=== PATIENT | female | born 1940 | race African-American/Black ===

== ENCOUNTER 2017-02-14 12:10 | Emergency (ER) | payer OTHER ==
--- NOTE | 2017-02-14 12:44 | PDOC ---
History of Present Illness - General Chief Complaint: Injury Stated Complaint: LEFT SHOULDER PAIN Time Seen by Provider: 02/14/17 12:32 History Source: Patient, Old Records Exam Limitations: No Limitations - History of Present Illness Initial Comments: 02/14/17 12:40 76-year-old female with history of hypertension, diabetes who presents to the emergency Department with complaints of left shoulder pain associated with some lightheadedness and feeling flushed earlier today. The patient states that she was at [employer] pushing a shopping cart when she suddenly started feeling this pain. The pain radiated into her neck but not into her chest. She denies trauma to the area. She has never had these feelings before. The pain lasted approximately 5 minutes and was described as sharp.She had no shortness of breath, nausea or vomiting. Past History - Past Medical History Allergies/Adverse Reactions: Allergies Allergy/AdvReac Type Severity Reaction Status Date / Time grapefruit Allergy "ITCHY" Verified 01/30/16 09:57 No Known Drug Allergies Allergy Verified 01/30/16 09:57 strawberry Allergy "ITCHY" Verified 01/30/16 09:57 tomato Allergy "ITCHY" Verified 01/30/16 09:57 Home Medications: Ambulatory Orders Amlodipine Besylate 10 mg PO HS tablet 02/13/14 Aspirin [Aspirin EC] 81 mg PO DAILY 02/13/14 Metformin HCl 500 mg PO BID #14 tablet 08/21/14 Anemia: No Asthma: No Cancer: No Cardiac Disorders: No CVA: No COPD: No CHF: No Dementia: No Diabetes: Yes GI Disorders: No Disorders: No HTN: Yes Hypercholesterolemia: No Liver Disease: No Seizures: No Thyroid Disease: No - Psycho/Social/Smoking Cessation Hx Suicidal Ideation: No Smoking History: Never smoked Have you smoked in the past 12 months: No Hx Alcohol Use: No Drug/Substance Use Hx: No Substance Use Type: None Hx Substance Use Treatment: No Review of Systems - Review of Systems Able to Perform ROS?: Yes Is the patient limited Latvian proficient: No Constitutional: No: Symptoms Reported HEENTM: No: Symptoms Reported Respiratory: No: Symptoms reported Cardiac (ROS): Yes: See HPI ABD/GI: No: Symptoms Reported : No: Symptoms Reported Musculoskeletal: Yes: See HPI Integumentary: No: Symptoms Reported Neurological: No: Symptoms reported *Physical Exam - Physical Exam Comments: 02/14/17 12:42 GENERAL: Well developed, well nourished. Awake and alert. No acute distress. HEENT: Normocephalic, atraumatic. PERRLA, EOMI. No conjunctival pallor. Sclera are non- icteric. Moist mucous membranes. Oropharynx is clear. NECK: Supple. Full ROM. No JVD. No lymphadenopathy. CARDIOVASCULAR: Regular rate and rhythm. No murmurs, rubs, or gallops. Distal pulses are 2+ and symmetric. PULMONARY: No evidence of respiratory distress. Lungs clear to auscultation bilaterally. No wheezing, rales or rhonchi. ABDOMINAL: Soft. Non-tender. Non-distended. No rebound or guarding. No organomegaly. Normoactive bowel sounds. MUSCULOSKELETAL Normal range of motion at all joints. No bony deformities or tenderness. No CVA tenderness. EXTREMITIES: No cyanosis. No clubbing. No edema. No calf tenderness. SKIN: Warm and dry. Normal capillary refill. No rashes. No jaundice. NEUROLOGICAL: Alert, awake, appropriate. Cranial nerves 2-12 intact. Grossly non-focal exam. PSYCHIATRIC: Cooperative. Good eye contact. Appropriate mood and affect. ED Treatment Course - LABORATORY CBC & Chemistry Diagram: 02/14/17 13:20 02/14/17 13:20 - RADIOLOGY Radiology Studies Ordered: Category Date Time Status CHEST PA & LAT [RAD] Stat Radiology 02/14/17 12:40 Ordered Medical Decision Making - Medical Decision Making 02/14/17 12:42 76-year-old female with history of hypertension, diabetes with left shoulder pain and associated lightheaded and flushed sensation. Differential diagnosis includes but is not limited to: ACS, muscular strain, nerve impingement, neuropathy, vasovagal response, electrolyte abnormality, dehydration, toxic/ metabolic derangement. Plan: 1. EKG 2. Chest x-ray 3. Labs 4. Observe and reevaluate 02/14/17 14:47 Addendum: Labs were reviewed and are noted in the EMR. EKG showed normal sinus rhythm with normal axis, intervals and no acute ST segment changes. Chest x-ray was negative. The patient has been reevaluated at this time and is feeling improved. The plan is to discharge home with follow-up with her primary care physician within the next 1-3 days. I have advised the patient to return to the emergency department if her symptoms persist, recur, worsen or new symptoms arise. *DC/Admit/Observation/Transfer Diagnosis at time of Disposition: Left shoulder pain - Discharge Dispostion Disposition: HOME Condition at time of disposition: Stable Admit: No - Referrals Referrals: Kathleen Craig MD [Primary Care Provider] - - Patient Instructions Printed Discharge Instructions: DI for Shoulder Pain Additional Instructions: Follow-up with your primary care physician within the next 1-3 days. Please return to the emergency department if your symptoms persist, recur, worsen or new symptoms arise.
[2017-02-14 13:37] LABS: BASOPHIL 0.4 % (0-2.0); EOSINOPHIL 1.1 % (0-4.5); MCH 28.8 pg (25.7-33.7); MCHC 33.5 g/dl (32.0-36.0); MEAN CELL VOLUME 85.9 fl (80-96); MEAN PLT VOLUME 8.7 fl (7.5-11.1); NEUTROPHILS 73.5 % (42.8-82.8); PLATELET COUNT 209 K/MM3 (134-434); RDW 13.6 % (11.6-15.6); WHITE BLOOD COUNT 8.7 K/mm3 (4.0-10.8)
[2017-02-14 13:46] VITALS: BP 141/67; PULSE 64; TEMP 97.7; BMI 31.4
[2017-02-14 14:03] LABS: CPK 181 IU/L (26-192)
[2017-02-14 14:04] LABS: ALBUMIN 4.4 g/dl (3.5-5.0); ALK PHOS 72 U/L (32-92); ANION GAP 7 (8-16); BILIRUBIN,TOTAL 0.4 mg/dl (0.2-1.0); CALCIUM 9.6 mg/dl (8.4-10.2); CO2 25 mmol/L (22-28); CREATININE 0.8 mg/dl (0.6-1.3); GLUCOSE,RANDOM 117 mg/dl (74-106); MAGNESIUM 2.1 mg/dL (1.8-2.4); PHOSPHOROUS 3.8 mg/dl (2.5-4.6); SGOT/AST 19 U/L (10-42); SGPT/ALT 14 U/L (10-40); TOT PROT 7.1 g/dl (6.4-8.3)
[2017-02-14 14:31] LABS: TROPONIN I (DFP) < 0.03 ng/ml (0.03-0.50)
--- NOTE | 2017-02-15 19:17 | EKG ---
Test Reason : Blood Pressure : / mmHG Vent. Rate : 068 BPM Atrial Rate : 068 BPM P-R Int : 180 ms QRS Dur : 092 ms QT Int : 434 ms P-R-T Axes : 057 -08 019 degrees QTc Int : 461 ms NORMAL SINUS RHYTHM NONSPECIFIC T WAVE ABNORMALITY CANNOT RULE OUT INFERIOR INFARCT ABNORMAL ECG WHEN COMPARED WITH ECG OF 24-SEP-2015 09:44, NONSPECIFIC T WAVE ABNORMALITY NOW EVIDENT IN LATERAL LEADS Confirmed by URIEL GAXIOLA, YOJANA ([id number] on 02/15/2017 7:16:50 PM Referred By: JUAN PABLO VALADEZ Confirmed By:YOJANA TREVINO MD
== END 2017-02-14 14:58 | disposition home or self-care (01) ==
LOC: FER 12:10
DX: M25.512 Pain in left shoulder (principal); I10 Essential (primary) hypertension; E11.9 Type 2 diabetes mellitus without complications
CPT/HCPCS: 36415; 71020-TC; 80053; 82553; 83735; 84100; 84484; 85025; 93005; 99282-25

== ENCOUNTER 2017-12-28 08:35 | Emergency (ER) | payer OTHER ==
[2017-12-28 08:43] VITALS: BP 144/75; PULSE 78; TEMP 77; BMI 30.9
[2017-12-28] MEDS ORDERED: KETOROLAC TROMETHAMINE 60 MG/2 ML VIAL IM ONE (08:50)
[2017-12-28] MEDS ORDERED: KETOROLAC TROMETHAMINE 60 MG/2 ML VIAL ONE (08:51)
--- NOTE | 2017-12-28 08:55 | PDOC ---
History of Present Illness - General Chief Complaint: Back Pain Stated Complaint: HIP/BACK PAIN Time Seen by Provider: 12/28/17 08:47 History Source: Patient Exam Limitations: No Limitations - History of Present Illness Initial Comments: 12/28/17 08:50 77 yr female with c/o right side sciatica, for 3 weeks worse since lifting heavy box. Pt has history of sciatica states it is worse when she stands all day at [employer]. Pt denies nausea vomiting neg bowel or bladder incontinence . Severity: reports: moderate Pain Location: reports: lower extremity (right buttock to lateral leg ) Past History - Past Medical History Allergies/Adverse Reactions: Allergies Allergy/AdvReac Type Severity Reaction Status Date / Time grapefruit Allergy "ITCHY" Verified 12/28/17 08:40 No Known Drug Allergies Allergy Verified 12/28/17 08:40 strawberry Allergy "ITCHY" Verified 12/28/17 08:40 tomato Allergy "ITCHY" Verified 12/28/17 08:40 Home Medications: Ambulatory Orders Amlodipine Besylate 10 mg PO HS tablet 02/13/14 Aspirin [Aspirin EC] 81 mg PO DAILY 02/13/14 Metformin HCl 500 mg PO BID #14 tablet 08/21/14 Methylprednisolone [Medrol Dose Sarath] 4 mg PO ASDIR #21 tablet 12/28/17 Anemia: No Asthma: No Cancer: No Cardiac Disorders: No CVA: No COPD: No CHF: No DVT: No Dementia: No Diabetes: Yes GI Disorders: No Disorders: No HTN: Yes Hypercholesterolemia: No Liver Disease: No Seizures: No Thyroid Disease: No - Immunization History Immunization Up to Date: Yes - Suicide/Smoking/Psychosocial Hx Smoking History: Never smoked Have you smoked in the past 12 months: No Information on smoking cessation initiated: No Hx Alcohol Use: No Drug/Substance Use Hx: No Substance Use Type: None Hx Substance Use Treatment: No *Physical Exam - Vital Signs Last Vital Signs Temp Pulse Resp BP Pulse Ox 77 F L 78 16 144/75 99 12/28/17 08:41 12/28/17 08:41 12/28/17 08:41 12/28/17 08:41 12/28/17 08:41 - Physical Exam General Appearance: Yes: Nourished, Appropriately Dressed HEENT: positive: EOMI, KEVIN Respiratory/Chest: positive: Lungs Clear, Normal Breath Sounds Cardiovascular: positive: Regular Rhythm, Regular Rate Gastrointestinal/Abdominal: positive: Normal Bowel Sounds, Soft Musculoskeletal: positive: Normal Inspection. negative: CVA Tenderness (L), Vertebral Tenderness Extremity: positive: Normal Capillary Refill, Other (pos SLR right side at 50 degrees ) Integumentary: positive: Normal Color, Dry, Warm Neurologic: positive: Fully Oriented, Alert, Normal Mood/Affect, Normal Response , Motor Strength 5/5 Medical Decision Making - Medical Decision Making 12/28/17 08:52 cc: right side sciatica neg nvd neg numbness or tingling neg saddle anesthesia neg bowel or bladder will give toradol now 12/29/17 12:24 pt ambulating no distress understands the dc plan *DC/Admit/Observation/Transfer Diagnosis at time of Disposition: Sciatica Qualifiers: Laterality: right Qualified Code(s): M54.31 - Sciatica, right side - Discharge Dispostion Disposition: HOME Condition at time of disposition: Good - Prescriptions Prescriptions: Methylprednisolone [Medrol Dose Sarath] 4 mg PO ASDIR #21 tablet - Referrals Referrals: Edward Pandya MD [Staff Physician] - - Patient Instructions Additional Instructions: follow with or your orthopedist for follow up you can start the medrol dose pack today, this will help your sciatica - Post Discharge Activity
== END 2017-12-28 09:09 | disposition home or self-care (01) ==
LOC: JERFT 08:35
PROC: 3E0233Z Introduction of Anti-inflammatory into Muscle, Percutaneous Approach (ICD-10-PCS; principal; 2017-12-28)
DX: M54.41 Lumbago with sciatica, right side (principal); I10 Essential (primary) hypertension; E11.9 Type 2 diabetes mellitus without complications; Z79.84 Long term (current) use of oral hypoglycemic drugs; Z79.82 Long term (current) use of aspirin
CPT/HCPCS: 99281-25

== ENCOUNTER 2018-01-08 06:04 | Emergency (ER) | payer SELFPAY ==
[2018-01-08 06:11] VITALS: BP 156/69; PULSE 75; TEMP 98.2; BMI 30.1
--- NOTE | 2018-01-08 07:08 | PDOC ---
Attending Attestation - Resident Resident Name: ShanthiLeatha - HPI HPI: 01/08/18 07:59 Pt presents to the ED complaining of atraumatic R lower back pain radiating down her R leg, consistent with prior episodes of sciatica. Seen in the ED two weeks ago, given medrol dose pack without relief. States that she also saw her orthopedist, who "pushed and pulled" on her back. She experienced no relief, so she presented to the ED today. Patient has not been taking anything at home for pain control. - Physicial Exam PE: 01/08/18 08:02 agree with resident exam. Patient is awake and alert and in no acute distress. No point tenderness in spine--patient points to an area just above her right buttock. - Medical Decision Making 01/08/18 08:03 Agree with resident exam. patient presents to the Ed with two weeks of atraumaitc back pain, consistnet with prior episodes of sciatica. Given age, and the fact that she has not yet been imaged for this pain, will check plain films of the LS spine to rule out malignancy or occult fracture. Will likely discharge with tylenol if films are negative.
[2018-01-08] MEDS ORDERED: KETOROLAC TROMETHAMINE 30 MG/1 ML VIAL IM ONE (07:34)
--- NOTE | 2018-01-08 07:46 | PDOC ---
History of Present Illness - General Chief Complaint: Pain, Acute Stated Complaint: RIGHT LEG PAIN Time Seen by Provider: 01/08/18 07:07 History Source: Patient Exam Limitations: No Limitations - History of Present Illness Initial Comments: 01/08/18 07:46 HPI: Patient is a 77 year old AA female with PMH of sciatica on the R side and hypertension, presents to ED with complaints of R sided Leg pain. She was last in the ED on 12/28/17 ago with similar complaints lasting for 3 weeks. Patient states the pain is worse when she stands up, the pain radiates down her leg to her heel and it becomes difficult for her to walk due to the pain. Nothing has been helping with the pain. She denies trauma, tenderness, swelling, bowel/ bladder incontinence, fever, chills, weakness, erythema, headaches, new neurological complaints. She saw Dr. Young for evaluation of this pain recently. When she was in the ED 1.5 weeks ago, she was given Toradol and Medrol dose pack which she states did not help much. Meds: amlodipine Allergies: None Known 01/08/18 09:35 Past History - Past Medical History Allergies/Adverse Reactions: Allergies Allergy/AdvReac Type Severity Reaction Status Date / Time grapefruit Allergy "ITCHY" Verified 01/08/18 06:51 No Known Drug Allergies Allergy Verified 01/08/18 06:51 strawberry Allergy "ITCHY" Verified 01/08/18 06:51 tomato Allergy "ITCHY" Verified 01/08/18 06:51 Home Medications: Ambulatory Orders Amlodipine Besylate 10 mg PO HS tablet 02/13/14 Aspirin [Aspirin EC] 81 mg PO DAILY 02/13/14 Metformin HCl 500 mg PO BID #14 tablet 08/21/14 Acetaminophen [Tylenol -] 500 mg PO Q4H #30 tablet 01/08/18 Anemia: No Asthma: No Cancer: No Cardiac Disorders: No CVA: No COPD: No CHF: No DVT: No Dementia: No Diabetes: Yes GI Disorders: No Disorders: No HTN: Yes Hypercholesterolemia: No Liver Disease: No Seizures: No Thyroid Disease: No - Immunization History Immunization Up to Date: Yes - Suicide/Smoking/Psychosocial Hx Smoking History: Never smoked Have you smoked in the past 12 months: No Information on smoking cessation initiated: No Hx Alcohol Use: No Drug/Substance Use Hx: No Substance Use Type: None Hx Substance Use Treatment: No Review of Systems - Review of Systems Comments:: 01/08/18 08:09 ROS: Constitutional: No fevers, chills, fatigue, malaise HEENT: No Rhinorrhea, nasal congestion, visual changes, Cardiovascular: No chest pain, syncope, palpitations, lightheadedness Respiratory: No Cough, SOB, Hemoptysis, Gastrointestinal: No Abdominal pain, Nausea, Vomiting, Constipation, Diarrhea, Melena Genitourinary: No Dysuria, Frequency, Urgency, Hesitancy, Hematuria, Flank pain Musculoskeletal: No Myalgia, arthralgia Skin: No rashes, itching, bruising, pallor Neurologic: Shooting pain down R leg upon standing, No Headache, Dizziness, Numbness, Weakness, or tingling Psychiatric: No Hallucinations. No SI or HI 01/08/18 09:35 Constitutional: Yes: See HPI HEENTM: Yes: See HPI Respiratory: Yes: See HPI Cardiac (ROS): Yes: See HPI ABD/GI: Yes: See HPI : Yes: See HPI Musculoskeletal: Yes: See HPI Integumentary: Yes: See HPI Neurological: Yes: See HPI Endocrine: Yes: See HPI Hematologic/Lymphatic: Yes: See HPI *Physical Exam - Vital Signs Last Vital Signs Temp Pulse Resp BP Pulse Ox 98.2 F 75 18 156/69 100 01/08/18 06:09 01/08/18 06:09 01/08/18 06:09 01/08/18 06:09 01/08/18 06:09 - Physical Exam Comments: 01/08/18 07:55 Physical Exam: General Appearance: Nourished. No Apparent Distress HEENT: EOMI, Respiratory/Chest: Lungs Clear, Normal Breath Sounds. No Crackles, Rales, Rhonchi, Wheezing Cardiovascular: Regular Rhythm, Regular Rate. No JVD, Murmur, Gallops, Rubs Peripheral pulses palpable bilaterally Gastrointestinal/Abdominal: Normal Bowel Sounds, Soft. No Guarding, Rebound, Tenderness Musculoskeletal: No CVA Tenderness, no spinal tenderness Integumentary: Normal Color, Dry, Warm Neurologic: Positive straight leg raise on R side, negative straight leg raise on L side, straddle carrier operator II-XII NML intact, Fully Oriented, Alert, Normal Mood/Affect, Normal Response, Motor Strength 5/5. 01/08/18 08:09 ED Treatment Course - RADIOLOGY Radiology Studies Ordered: Category Date Time Status PELVIS [RAD] Stat Radiology 01/08/18 07:34 Ordered SPINE-LUMBAR SACRAL [RAD] Stat Radiology 01/08/18 07:34 Ordered 01/08/18 09:15 Xray sacral spine showed no acute processes or lesions. Xray Pelvis did not show any acute processes or lesions. - Medications Given in the ED: 01/08/18 07:55 Toradol 30mg IM Medical Decision Making - Medical Decision Making 01/08/18 07:55 Patient is a 77 year old AA female with PMH of sciatica and HTN presenting with a total of 4.5 weeks of R sided leg pain which starts at the hip and radiates down to the R heel. She complains of shooting pains upon standing with nothing reducing the pain. She denies bladder/bowel incontinence, fever, chills, swelling, erythema, trauma, new neurological complaints. Based on ROS and PE, patient is not likely to have cord compression. Due to patient's age and duration of symptoms (4.5 weeks) Xray of lumbar and sacral spine as well as pelvis were ordered to r/o multiple myeloma as a possible cause of patient's pain. Patient was given a dose of 30mg Toradol IM to help with pain. Xray sacral spine and pelvis did not show any blastic or lytic lesions. No acute processes. Patient reported some relief after dose of Toradol. Since patient is stable, is not experiencing excruciating pain, does not have any new neurological deficits, no new imaging findings, and is ambulatory, patient will be discharged home with a prescription for extra strength Tylenol. Patient was advised to make an appointment with PCP or orthopedist. 01/08/18 07:59 01/08/18 08:01 01/08/18 09:16 *DC/Admit/Observation/Transfer Diagnosis at time of Disposition: Sciatica Qualifiers: Laterality: right Qualified Code(s): M54.31 - Sciatica, right side - Discharge Dispostion Disposition: HOME Condition at time of disposition: Stable - Prescriptions Prescriptions: Acetaminophen [Tylenol -] 500 mg PO Q4H #30 tablet - Referrals Referrals: Kathleen Craig MD [Primary Care Provider] - - Patient Instructions Printed Discharge Instructions: DI for Sciatica Additional Instructions: You were seen today for pain in your right leg that starts in your hips and radiates down your leg. Based on your history, this is most likely caused by Sciatica. You were given extra strength Tylenol for pain. I recommend you follow up with your PCP or Orthopedist for further management of Sciatica. If your pain gets worse, if you start feeling weakness in your right leg, if you start to experience bladder and bowel incontinence or retention, loss of sensation in your leg or pelvic area please return back to the Emergency Department. Thank you. - Post Discharge Activity
[2018-01-08] MEDS ORDERED: KETOROLAC TROMETHAMINE 30 MG/1 ML VIAL ONE (08:34)
== END 2018-01-08 09:58 | disposition home or self-care (01) ==
LOC: JER 06:04
PROC: 3E0233Z Introduction of Anti-inflammatory into Muscle, Percutaneous Approach (ICD-10-PCS; principal; 2018-01-08)
DX: M54.31 Sciatica, right side (principal); E11.9 Type 2 diabetes mellitus without complications; Z79.84 Long term (current) use of oral hypoglycemic drugs; I10 Essential (primary) hypertension
CPT/HCPCS: 72100-TC-FY; 72170-TC-FY; 99281-25

== ENCOUNTER 2019-05-04 14:27 | Emergency (ER) | payer SELFPAY ==
[2019-05-04 14:47] VITALS: BP 129/55; PULSE 58; TEMP 98; BMI 29.2
[2019-05-04] MEDS ORDERED: SODIUM PHOSPHATE/NA BIPHOS 133 ML ENEMA PR ONE (16:30)
--- NOTE | 2019-05-04 16:32 | PDOC ---
History of Present Illness - General Chief Complaint: Constipation Stated Complaint: PAIN Time Seen by Provider: 05/04/19 16:25 Past History - Past Medical History Allergies/Adverse Reactions: Allergies Allergy/AdvReac Type Severity Reaction Status Date / Time grapefruit Allergy "ITCHY" Verified 01/08/18 06:51 No Known Drug Allergies Allergy Verified 01/08/18 06:51 strawberry Allergy "ITCHY" Verified 01/08/18 06:51 tomato Allergy "ITCHY" Verified 01/08/18 06:51 Home Medications: Ambulatory Orders Amlodipine Besylate 10 mg PO HS tablet 02/13/14 Aspirin [Aspirin EC] 81 mg PO DAILY 02/13/14 Metformin HCl 500 mg PO BID #14 tablet 08/21/14 Acetaminophen [Tylenol -] 500 mg PO Q4H #30 tablet 01/08/18 Magnesium Citrate [Citroma -] 195 ml PO ONCE #1 bottle 05/04/19 Sodium Phosphate/Na Biphos [Fleet Adult Rectal Enema] 133 ml RC ONCE #1 enema Anemia: No Asthma: No Cancer: No Cardiac Disorders: No CVA: No COPD: No CHF: No DVT: No Dementia: No Diabetes: Yes GI Disorders: No Disorders: No HTN: Yes Hypercholesterolemia: No Liver Disease: No Seizures: No Thyroid Disease: No - Immunization History Immunization Up to Date: Yes - Psycho Social/Smoking Cessation Hx Smoking History: Never smoked Have you smoked in the past 12 months: No Hx Alcohol Use: No Drug/Substance Use Hx: No Substance Use Type: None Hx Substance Use Treatment: No *Physical Exam - Vital Signs Last Vital Signs Temp Pulse Resp BP Pulse Ox 98.0 F 58 L 18 129/55 L 98 05/04/19 14:27 05/04/19 14:27 05/04/19 14:27 05/04/19 14:27 05/04/19 14:27 ED Treatment Course - LABORATORY CBC & Chemistry Diagram: 05/04/19 17:20 05/04/19 17:20 - RADIOLOGY Radiology Studies Ordered: Category Date Time Status CHEST X-RAY PORTABLE* [RAD] Stat Radiology 05/04/19 16:30 Ordered Discharge - Discharge Information Problems reviewed: Yes Clinical Impression/Diagnosis: Constipation Condition: Good Disposition: HOME - Admission No - Additional Discharge Information Prescriptions: Magnesium Citrate [Citroma -] 195 ml PO ONCE #1 bottle Sodium Phosphate/Na Biphos [Fleet Adult Rectal Enema] 133 ml RC ONCE #1 enema - Follow up/Referral Referrals: Kathleen Craig MD [Primary Care Provider] - - Patient Discharge Instructions Patient Printed Discharge Instructions: DI for Constipation Additional Instructions: You were seen for your constipation and lightheadedness. Please follow up with your primary medical doctor within 1 week after discharge for follow up care and management. Please return to the emergency department if you have worsening pain or new concerning symptoms. Please take the medications as prescribed. Thank you. - Post Discharge Activity
--- NOTE | 2019-05-04 17:00 | PDOC ---
Attending Attestation - Resident Resident Name: Homer Almodovar - ED Attending Attestation I have performed the following: I have examined & evaluated the patient, The case was reviewed & discussed with the resident, I agree w/resident's findings & plan, Exceptions are as noted - HPI HPI: 05/04/19 16:53 78 F with h/o DM presenting to ED with constipation. Pt states that she has been eating a lot of cheese and bread, causing her to become constipated. Pt last had a normal BM 2 days ago. Since then, she has only passed small dorie. Denies any abdominal pain but feels the constant urge to have a BM. Denies N/V. Pt also reports an episode of lightheadedness while on the toilet today to have a BM. She states she was straining very hard and subsequently felt lightheaded. This lasted only a few seconds before resolving spontaneously. Denies ever having CP/SOB. Pt now denies any complaints other than feeling the urge to have a BM. - Physicial Exam PE: 05/04/19 17:00 "GENERAL: Awake, alert, and fully oriented, in no acute distress. HEAD: No signs of trauma EYES: PERRLA, EOMI, sclera anicteric, conjunctiva clear ENT: Auricles normal inspection, hearing grossly normal, nares patent, oropharynx clear without exudates. Moist mucosa NECK: Nontender, no stepoffs, Normal ROM, supple, no lymphadenopathy, JVD, or masses LUNGS: Breath sounds equal, clear to auscultation bilaterally. No wheezes, and no crackles HEART: Regular rate and rhythm, normal S1 and S2, no murmurs, rubs or gallops ABDOMEN: Soft, nontender, normoactive bowel sounds. No guarding, no rebound. No masses EXTREMITIES: Normal range of motion, no edema. No clubbing or cyanosis. No cords, erythema, or tenderness NEUROLOGICAL: Cranial nerves II through XII intact. 5/5 strength and sensation in all extremities, Normal speech, normal gait, normal cerebellar function SKIN: Warm, Dry, normal turgor, no rashes or lesions noted. - Medical Decision Making 05/04/19 17:00 78 F with constipation. Abdomen benign. No signs of obstruction. Pt still passing small amounts of stool. Pt also had transient episode of lightheadedness while straining on the toilet. Likely vasovagal. EKG with no ischemia or arrhythmia. - Labs, trop - CXR - Enema 05/04/19 18:48 Labs wnl Pt with small amount of stool passage with enema Abdomen continues to be benign Will DC with mag citrate, bowel regimen Pt is well appearing, with normal vitals. Clinically stable for DC at this time. I discussed the physical exam findings, ancillary test results and final diagnoses with the patient. I answered all of the patient's questions. The patient was satisfied with the care received and felt comfortable with the discharge plan and treatment plan. The patient agrees to follow up with the primary care physician within 24-72 hours.
[2019-05-04 17:33] LABS: BASO % 0.3 % (0-2.0); EOS % 0.1 % (0-4.5); HEMATOCRIT 42.5 % (32.4-45.2); HEMOGLOBIN 14.6 GM/dL (10.7-15.3); LYMPH % 15.6 % (8-40); MCH 30.8 pg (25.7-33.7); MCHC 34.3 g/dl (32.0-36.0); MEAN CELL VOLUME 89.9 fl (80-96); MONO % 4.6 % (3.8-10.2); NEUT % 79.4 % (42.8-82.8); PLATELET COUNT 252 K/MM3 (134-434); RBC 4.73 M/mm3 (3.60-5.2); RDW 14.8 % (11.6-15.6)
[2019-05-04 18:08] LABS: ALBUMIN 4.3 g/dl (3.4-5.0); BILIRUBIN,TOTAL 0.3 mg/dL (0.2-1); BLOOD UREA NITROGEN 16.8 mg/dL (7-18); CALCIUM 9.1 mg/dL (8.5-10.1); CREATININE 0.9 mg/dL (0.55-1.3); POTASSIUM 3.7 mmol/L (3.5-5.1); TOT PROT 7.7 g/dl (6.4-8.2)
--- NOTE | 2019-05-05 14:38 | EKG ---
Test Reason : Blood Pressure : / mmHG Vent. Rate : 057 BPM Atrial Rate : 057 BPM P-R Int : 208 ms QRS Dur : 086 ms QT Int : 456 ms P-R-T Axes : 056 -05 027 degrees QTc Int : 443 ms SINUS BRADYCARDIA POSSIBLE LEFT ATRIAL ENLARGEMENT NONSPECIFIC ST ABNORMALITY WHEN COMPARED WITH ECG OF 14-FEB-2017 12:54, NO SIGNIFICANT CHANGE WAS FOUND Confirmed by ELÍAS BURR MD ([id number]) on 05/05/2019 2:37:43 PM Referred By: Confirmed By:ELÍAS BURR MD
== END 2019-05-04 18:40 | disposition home or self-care (01) ==
LOC: JER 14:27
DX: K59.00 Constipation, unspecified (principal); I10 Essential (primary) hypertension; E11.9 Type 2 diabetes mellitus without complications; Z79.84 Long term (current) use of oral hypoglycemic drugs; Z91.018 Allergy to other foods
CPT/HCPCS: 36415; 71045-TC-FY; 80053; 82550; 82553; 84484; 85025; 93005; 93010; 99284-25

== ENCOUNTER 2021-07-16 12:27 | Emergency (ER) | payer OTHER ==
[2021-07-16 12:49] VITALS: BP 101/57; PULSE 58; TEMP 96.5; BMI 30.1
[2021-07-16] MEDS ORDERED: SODIUM CHLORIDE 0.9% 500 ML INFUS.BAG IV ONE ×2 (13:22→14:24)
[2021-07-16 14:45] LABS: BASO % 0.2 % (0-2.0); EOS % 0.1 % (0-4.5); HEMATOCRIT 42.7 % (32.4-45.2); HEMOGLOBIN 14.1 GM/dL (10.7-15.3); MCH 30.2 pg (25.7-33.7); MCHC 33.1 g/dl (32.0-36.0); MEAN CELL VOLUME 91.3 fl (80-96); MEAN PLT VOLUME 8.5 fl (7.5-11.1); MONO % 8.4 % (3.8-10.2); NEUT % 77.3 % (42.8-82.8); PLATELET COUNT 180 10^3/uL (134-434); RBC 4.68 M/mm3 (3.60-5.2); RDW 14.6 % (11.6-15.6); WHITE BLOOD COUNT 6.7 K/mm3 (4.0-10.0)
[2021-07-16 14:59] LABS: CHLORIDE 108 mmol/L (98-107); SODIUM 143 mmol/L (136-145)
[2021-07-16 15:01] LABS: CALCIUM 9.3 mg/dL (8.5-10.1)
[2021-07-16 15:02] LABS: ALBUMIN 4.1 g/dl (3.4-5.0); ANION GAP 13 MMOL/L (8-16); CO2 22 mmol/L (21-32); GLUCOSE,RANDOM 114 mg/dL (74-106)
[2021-07-16 15:05] LABS: CREATININE 1.3 mg/dL (0.55-1.3); SGOT/AST 22 U/L (15-37); SGPT/ALT 20 U/L (13-61)
[2021-07-16 15:06] LABS: BILIRUBIN,TOTAL 0.3 mg/dL (0.2-1); TOT PROT 7.3 g/dl (6.4-8.2)
[2021-07-16 15:08] LABS: ALK PHOS 76 U/L (45-117)
== END 2021-07-16 15:52 | disposition left against medical advice (07) ==
LOC: JER 12:27
DX: R19.7 Diarrhea, unspecified (principal); R42 Dizziness and giddiness
CPT/HCPCS: 36415; 71045-TC-FY; 80053; 82962; 84443; 84484; 85025; 93005; 93010; 99285-25

== ENCOUNTER 2023-08-28 13:38 | Inpatient (IN) | payer OTHER ==
[2023-08-28] MEDS: LACTATED RINGERS SOLUTION 1,000 ML/1,000 ML INFUS.BAG IV SCH (14:46)
[2023-08-28 15:02] LABS: BASO % 0.2 % (0-2.0); EOS % 0.3 % (0-4.5); HEMOGLOBIN 14.7 GM/dL (10.7-15.3); MCH 30.5 pg (25.7-33.7); MCHC 34.3 g/dl (32.0-36.0); MEAN CELL VOLUME 88.9 fl (80-96); MONO % 9.5 % (3.8-10.2); PLATELET COUNT 198 10^3/uL (134-434); RBC 4.83 M/mm3 (3.60-5.2); RDW 14.9 % (11.6-15.6); WHITE BLOOD COUNT 6.2 K/mm3 (4.0-10.0)
[2023-08-28 15:09] LABS: POTASSIUM 3.7 mmol/L (3.5-5.1)
[2023-08-28 15:11] LABS: CALCIUM 8.9 mg/dL (8.5-10.1)
[2023-08-28 15:12] LABS: ALBUMIN 3.4 g/dl (3.4-5.0); MAGNESIUM 2.1 mg/dL (1.8-2.4)
[2023-08-28 15:15] LABS: CREATININE 0.9 mg/dL (0.55-1.3); PHOSPHOROUS 3.4 mg/dL (2.5-4.9)
[2023-08-28 15:16] LABS: BILIRUBIN,TOTAL 0.4 mg/dL (0.2-1)
[2023-08-28] MEDS ORDERED: OSELTAMIVIR PHOSPHATE 75 MG CAPSULE ONE (16:16)
[2023-08-28] MEDS: OSELTAMIVIR PHOSPHATE 75 MG CAPSULE PO ONE (16:19)
[2023-08-28 17:38] LABS: EPI CELLS 17 /uL (0-25.1); HYALINE CASTS 1 /uL (0-3.1); PH,URINE 5.5 (5.0-8.0); URINE APPEARANCE CLEAR; URINE BACTERIA 121 /uL (0-1359); URINE BILIRUBIN NEGATIVE (NEGATIVE); URINE COLOR YELLOW; URINE GLUCOSE (UA) NEGATIVE (NEGATIVE); URINE KETONE 2+ (NEGATIVE); URINE LEUK ESTERASE 2+ (NEGATIVE); URINE NITRITE NEGATIVE (NEGATIVE); URINE PROTEIN 1+ (NEGATIVE); URINE UROBILINOGEN 0.2 mg/dL (0.2-1.0); URINE WBC 136 /uL (0-25.8)
[2023-08-28] MEDS ORDERED: MAGNESIUM CITRATE 300 ML BOTTLE ONE (17:43)
[2023-08-28] MEDS ORDERED: ACETAMINOPHEN 500 MG TABLET (FP) ONE (17:45)
[2023-08-28] MEDS: ACETAMINOPHEN 500 MG TABLET (FP) PO SCH (17:56)
[2023-08-28] MEDS: MAGNESIUM CITRATE 300 ML BOTTLE PO SCH (17:56)
[2023-08-28 18:06] LABS: URINE RBC 29.7 /uL (0-23.9)
[2023-08-28] MEDS: amLODIPine BESYLATE 10 MG TABLET (FP) PO SCH (21:50)
[2023-08-29 06:01] VITALS: BMI 25.1
[2023-08-29 07:32] LABS: BASO % 0.4 % (0-2.0); EOS % 1.4 % (0-4.5); HEMATOCRIT 39.8 % (32.4-45.2); HEMOGLOBIN 13.1 GM/dL (10.7-15.3); LYMPH % 53.2 % (8-40); MCH 29.4 pg (25.7-33.7); MEAN CELL VOLUME 89.2 fl (80-96); MEAN PLT VOLUME 9.1 fl (7.5-11.1); MONO % 12.8 % (3.8-10.2); NEUT % 32.2 % (42.8-82.8); PLATELET COUNT 188 10^3/uL (134-434); RBC 4.46 M/mm3 (3.60-5.2); RDW 14.6 % (11.6-15.6); WHITE BLOOD COUNT 4.4 K/mm3 (4.0-10.0)
[2023-08-29 07:52] LABS: POTASSIUM 3.4 mmol/L (3.5-5.1)
[2023-08-29 07:55] LABS: CALCIUM 8.3 mg/dL (8.5-10.1)
[2023-08-29 07:57] LABS: BLOOD UREA NITROGEN 14.2 mg/dL (7-18)
[2023-08-29 08:00] LABS: CREATININE 0.6 mg/dL (0.55-1.3)
[2023-08-29] MEDS: OSELTAMIVIR PHOSPHATE 75 MG CAPSULE PO SCH (11:22)
[2023-08-29] MEDS: POTASSIUM CHLORIDE TABS 20 MEQ TABLET.ER (FP) PO SCH (11:22)
[2023-08-29] MEDS: ASPIRIN COATED 81 MG TABLET.EC PO SCH (11:22)
[2023-08-29] MEDS: CEFTRIAXONE 1 GM in DEXTROSE 5%-WATER - 50 ML IVPB SCH (12:13)
[2023-08-30 08:58] LABS: BASO % 0.4 % (0-2.0); EOS % 1.7 % (0-4.5); HEMATOCRIT 40.2 % (32.4-45.2); HEMOGLOBIN 13.3 GM/dL (10.7-15.3); LYMPH % 42.2 % (8-40); MCH 29.6 pg (25.7-33.7); MCHC 33.1 g/dl (32.0-36.0); MEAN CELL VOLUME 89.2 fl (80-96); MEAN PLT VOLUME 9.2 fl (7.5-11.1); MONO % 9.7 % (3.8-10.2); PLATELET COUNT 188 10^3/uL (134-434); RBC 4.51 M/mm3 (3.60-5.2); RDW 14.5 % (11.6-15.6); WHITE BLOOD COUNT 5.6 K/mm3 (4.0-10.0)
[2023-08-30 09:18] LABS: POTASSIUM 3.7 mmol/L (3.5-5.1)
[2023-08-30 09:28] LABS: BLOOD UREA NITROGEN 13.8 mg/dL (7-18); CALCIUM 8.7 mg/dL (8.5-10.1)
[2023-08-30 09:31] LABS: CREATININE 0.7 mg/dL (0.55-1.3)
[2023-08-31 09:14] LABS: BASO % 0.4 % (0-2.0); EOS % 2.3 % (0-4.5); HEMATOCRIT 39.5 % (32.4-45.2); LYMPH % 51.4 % (8-40); MCH 29.4 pg (25.7-33.7); MCHC 32.9 g/dl (32.0-36.0); MEAN CELL VOLUME 89.3 fl (80-96); MEAN PLT VOLUME 9.4 fl (7.5-11.1); MONO % 10.8 % (3.8-10.2); NEUT % 35.1 % (42.8-82.8); PLATELET COUNT 200 10^3/uL (134-434); RBC 4.42 M/mm3 (3.60-5.2); RDW 14.5 % (11.6-15.6); WHITE BLOOD COUNT 5.1 K/mm3 (4.0-10.0)
[2023-08-31 09:36] LABS: POTASSIUM 3.8 mmol/L (3.5-5.1)
[2023-08-31 09:38] LABS: CALCIUM 8.4 mg/dL (8.5-10.1)
[2023-08-31 09:39] LABS: MAGNESIUM 2.1 mg/dL (1.8-2.4)
[2023-08-31 09:41] LABS: BLOOD UREA NITROGEN 15.4 mg/dL (7-18); CREATININE 0.7 mg/dL (0.55-1.3)
[2023-08-31 09:43] LABS: BILIRUBIN,TOTAL 0.3 mg/dL (0.2-1); TOT PROT 5.9 g/dl (6.4-8.2)
[2023-08-31] MEDS: ENOXAPARIN NA (PORCINE) 40 MG/0.4 ML DISP.SYRIN SQ SCH (16:36)
[2023-09-01 05:31] VITALS: RESP 18
[2023-09-01] MEDS: OSELTAMIVIR PHOSPHATE 75 MG CAPSULE PO SCH ×2 (15:38→21:41)
[2023-09-02 08:21] LABS: BASO % 0.3 % (0-2.0); EOS % 2.8 % (0-4.5); HEMATOCRIT 38.6 % (32.4-45.2); HEMOGLOBIN 13.2 GM/dL (10.7-15.3); LYMPH % 38.8 % (8-40); MCH 30.2 pg (25.7-33.7); MCHC 34.2 g/dl (32.0-36.0); MEAN CELL VOLUME 88.3 fl (80-96); MEAN PLT VOLUME 9.3 fl (7.5-11.1); MONO % 9.5 % (3.8-10.2); NEUT % 48.6 % (42.8-82.8); PLATELET COUNT 225 10^3/uL (134-434); POTASSIUM 3.8 mmol/L (3.5-5.1); RBC 4.38 M/mm3 (3.60-5.2); RDW 14.1 % (11.6-15.6); WHITE BLOOD COUNT 6.9 K/mm3 (4.0-10.0)
[2023-09-02 08:26] LABS: ALBUMIN 3.1 g/dl (3.4-5.0); BLOOD UREA NITROGEN 15.1 mg/dL (7-18); CALCIUM 8.3 mg/dL (8.5-10.1); MAGNESIUM 1.8 mg/dL (1.8-2.4)
[2023-09-02 08:29] LABS: CREATININE 0.7 mg/dL (0.55-1.3)
[2023-09-02 08:31] LABS: BILIRUBIN,TOTAL 0.3 mg/dL (0.2-1); TOT PROT 6.2 g/dl (6.4-8.2)
[2023-09-02 10:55] VITALS: TEMP 98.2
[2023-09-02 14:10] VITALS: BP 107/59; PULSE 67
== END 2023-09-02 19:01 | DRG 153 ==
LOC: JER 13:38 → JERBED 14:55 → J8W 20:01 → OBSVTOIN 08-30 11:42
PROVIDERS: ADMIT Internal Medicine; ATTEND Nurse Practitioner Family
DX: J11.1 Influenza due to unidentified influenza virus with other respiratory manifestations (principal); N39.0 Urinary tract infection, site not specified; E11.9 Type 2 diabetes mellitus without complications; I10 Essential (primary) hypertension
CPT/HCPCS: 0241U-QW; 36415; 71045-TC-FY; 80048; 80053; 81003; 82962; 83735; 84100; 85025; 87086; 87186; 93005; 93010; 97116-GP; 97161-GP; 99285-25; G0378